=== PATIENT | male | born 1980 | race Caucasian/White ===

== ENCOUNTER 2020-10-14 06:51 | Emergency (ER) | payer OTHER ==
[2020-10-14 07:10] VITALS: BP 117/77; PULSE 82; TEMP 97; BMI 34.2
[2020-10-14 08:31] LABS: BASO % 0.5 % (0-2.0); EOS % 4.9 % (0-4.5); HEMATOCRIT 36.7 % (35.4-49); HEMOGLOBIN 12.1 GM/dL (11.7-16.9); LYMPH % 35.1 % (8-40); MCH 29.4 pg (25.7-33.7); MCHC 32.9 g/dl (32.0-35.9); MEAN CELL VOLUME 89.4 fl (80-96); MEAN PLT VOLUME 9.7 fl (7.5-11.1); MONO % 12.3 % (3.8-10.2); NEUT % 47.2 % (42.8-82.8); PLATELET COUNT 194 K/MM3 (134-434); RBC 4.11 M/mm3 (4.00-5.60); RDW 14.2 % (11.9-15.9); WHITE BLOOD COUNT 7.7 K/mm3 (4.0-10.0)
[2020-10-14 08:41] LABS: CHLORIDE 109 mmol/L (98-107); POTASSIUM 4.5 mmol/L (3.5-5.1); SODIUM 140 mmol/L (136-145)
[2020-10-14 08:44] LABS: ALBUMIN 4.1 g/dl (3.4-5.0); ANION GAP 3 MMOL/L (8-16); BLOOD UREA NITROGEN 7.2 mg/dL (7-18); CO2 28 mmol/L (21-32); GLUCOSE,RANDOM 117 mg/dL (74-106)
[2020-10-14 08:47] LABS: CREATININE 0.8 mg/dL (0.55-1.3); SGOT/AST 22 U/L (15-37); SGPT/ALT 30 U/L (13-61)
[2020-10-14 08:49] LABS: BILIRUBIN,TOTAL 0.3 mg/dL (0.2-1); TOT PROT 6.9 g/dl (6.4-8.2)
[2020-10-14 08:50] LABS: ALK PHOS 50 U/L (45-117)
== END 2020-10-14 08:44 | disposition left against medical advice (07) ==
LOC: JER 06:51
DX: R07.9 Chest pain, unspecified (principal)
CPT/HCPCS: 36415; 71045-TC-FY; 80053; 82550; 82553; 84484; 85025; 93005; 93010; 99285-25

== ENCOUNTER 2021-01-13 14:53 | Emergency (ER) | payer OTHER ==
[2021-01-13 15:03] VITALS: BP 141/83; PULSE 82; TEMP 98; BMI 33.4
[2021-01-13 16:34] LABS: BASO % 0.8 % (0-2.0); EOS % 2.5 % (0-4.5); HEMATOCRIT 38.1 % (35.4-49); HEMOGLOBIN 12.6 GM/dL (11.7-16.9); LYMPH % 23.1 % (8-40); MCHC 33.1 g/dl (32.0-35.9); MEAN CELL VOLUME 90.7 fl (80-96); MEAN PLT VOLUME 9.3 fl (7.5-11.1); MONO % 9.6 % (3.8-10.2); PLATELET COUNT 216 K/MM3 (134-434); RDW 13.5 % (11.9-15.9); WHITE BLOOD COUNT 9.4 K/mm3 (4.0-10.0)
[2021-01-13] MEDS ORDERED: hydrOXYzine PAMOATE 25 MG CAPSULE (FP) PO ONE ×2 (17:26→17:30)
[2021-01-13 17:33] LABS: CHLORIDE 110 mmol/L (98-107); POTASSIUM 4.6 mmol/L (3.5-5.1); SODIUM 139 mmol/L (136-145)
[2021-01-13 17:38] LABS: CALCIUM 9.6 mg/dL (8.5-10.1)
[2021-01-13 17:39] LABS: ALBUMIN 4.6 g/dl (3.4-5.0); ANION GAP 3 MMOL/L (8-16); BLOOD UREA NITROGEN 8.5 mg/dL (7-18); CO2 27 mmol/L (21-32); GLUCOSE,RANDOM 97 mg/dL (74-106)
[2021-01-13 17:42] LABS: CREATININE 0.8 mg/dL (0.55-1.3); SGOT/AST 21 U/L (15-37); SGPT/ALT 24 U/L (13-61)
[2021-01-13 17:43] LABS: BILIRUBIN,TOTAL 0.7 mg/dL (0.2-1); TOT PROT 7.7 g/dl (6.4-8.2)
[2021-01-13 17:44] LABS: ALK PHOS 62 U/L (45-117)
== END 2021-01-13 18:10 | disposition home or self-care (01) ==
LOC: JER 14:53
DX: F41.9 Anxiety disorder, unspecified (principal); R07.9 Chest pain, unspecified
CPT/HCPCS: 36415; 71046-TC-FY; 80053; 82550; 82553; 84484; 85025; 93005; 93010; 99284-25

== ENCOUNTER 2021-05-12 09:02 | Emergency (ER) | payer OTHER ==
[2021-05-12 09:12] VITALS: BP 123/82; TEMP 98.4; BMI 29.6
[2021-05-12] MEDS ORDERED: SODIUM CHLORIDE 1,000 ML IV STA (10:41)
[2021-05-12] MEDS ORDERED: LORazepam 2 MG TABLET PO ONE ×2 (11:25→13:29)
[2021-05-12] MEDS ORDERED: LORazepam 0.5 MG TABLET ONE (11:33)
[2021-05-12 11:45] LABS: BASO % 0.5 % (0-2.0); EOS % 1.4 % (0-4.5); HEMATOCRIT 39.2 % (35.4-49); HEMOGLOBIN 12.7 GM/dL (11.7-16.9); LYMPH % 13.4 % (8-40); MCH 29.3 pg (25.7-33.7); MCHC 32.5 g/dl (32.0-35.9); MEAN CELL VOLUME 90.3 fl (80-96); MEAN PLT VOLUME 8.9 fl (7.5-11.1); MONO % 8.4 % (3.8-10.2); NEUT % 76.3 % (42.8-82.8); PLATELET COUNT 206 10^3/uL (134-434); RBC 4.35 M/mm3 (4.00-5.60); RDW 13.5 % (11.9-15.9); WHITE BLOOD COUNT 8.6 K/mm3 (4.0-10.0)
[2021-05-12 12:06] LABS: BLOOD UREA NITROGEN 10.1 mg/dL (7-18); CALCIUM 8.9 mg/dL (8.5-10.1)
[2021-05-12 12:07] LABS: ALBUMIN 4.4 g/dl (3.4-5.0)
[2021-05-12 12:10] LABS: CREATININE 0.7 mg/dL (0.55-1.3)
[2021-05-12 12:11] LABS: BILIRUBIN,TOTAL 0.3 mg/dL (0.2-1); TOT PROT 7.5 g/dl (6.4-8.2)
[2021-05-12 13:25] VITALS: PULSE 86
[2021-05-12] MEDS ORDERED: LORazepam 1 MG TABLET ONE (13:40)
== END 2021-05-12 13:49 | disposition home or self-care (01) ==
LOC: JER 09:02
PROC: 3E0337Z Introduction of Electrolytic and Water Balance Substance into Peripheral Vein, Percutaneous Approach (ICD-10-PCS; principal; 2021-05-12)
DX: F41.9 Anxiety disorder, unspecified (principal); R07.9 Chest pain, unspecified
CPT/HCPCS: 36415; 80053; 80178; 83930; 85025; 93005; 93010; 99284-25

== ENCOUNTER 2021-05-13 15:45 | Emergency (ER) | payer OTHER ==
[2021-05-13 16:04] VITALS: BP 150/88; PULSE 50; TEMP 98.2; BMI 28.8
== END 2021-05-13 16:00 | disposition left against medical advice (07) ==
LOC: JER 15:45
DX: F41.9 Anxiety disorder, unspecified (principal)
CPT/HCPCS: 99281-25

== ENCOUNTER 2021-12-14 11:33 | Emergency (ER) | payer OTHER ==
[2021-12-14 11:48] VITALS: BP 153/88; PULSE 59; TEMP 98; BMI 30.4
[2021-12-14] MEDS ORDERED: diazePAM CARPU-JECT 10 MG/2 ML DISP.SYRIN IVPUSH ONE (13:00)
[2021-12-14] MEDS ORDERED: SODIUM CHLORIDE 0.9% 500 ML INFUS.BAG IV ONE (13:01)
[2021-12-14] MEDS ORDERED: diazePAM CARPU-JECT 10 MG/2 ML DISP.SYRIN ONE (13:29)
[2021-12-14 13:39] LABS: BASO % 0.4 % (0-2.0); EOS % 1.9 % (0-4.5); HEMATOCRIT 37.8 % (35.4-49); HEMOGLOBIN 12.8 GM/dL (11.7-16.9); LYMPH % 31.2 % (8-40); MCH 30.1 pg (25.7-33.7); MCHC 33.9 g/dl (32.0-35.9); MEAN CELL VOLUME 88.8 fl (80-96); MEAN PLT VOLUME 9.1 fl (7.5-11.1); MONO % 10.2 % (3.8-10.2); NEUT % 56.3 % (42.8-82.8); PLATELET COUNT 278 10^3/uL (134-434); RBC 4.25 M/mm3 (4.00-5.60); RDW 15.1 % (11.9-15.9); WHITE BLOOD COUNT 6.1 K/mm3 (4.0-10.0)
[2021-12-14 13:59] LABS: CALCIUM 9.5 mg/dL (8.5-10.1)
[2021-12-14 14:00] LABS: ALBUMIN 4.5 g/dl (3.4-5.0); BLOOD UREA NITROGEN 12.5 mg/dL (7-18)
[2021-12-14 14:03] LABS: CREATININE 0.7 mg/dL (0.55-1.3)
[2021-12-14 14:05] LABS: BILIRUBIN,TOTAL 0.8 mg/dL (0.2-1); TOT PROT 7.9 g/dl (6.4-8.2)
== END 2021-12-14 15:47 | disposition home or self-care (01) ==
LOC: JER 11:33
PROC: 3E033NZ Introduction of Analgesics, Hypnotics, Sedatives into Peripheral Vein, Percutaneous Approach (ICD-10-PCS; principal; 2021-12-14)
DX: R07.89 Other chest pain (principal); F41.9 Anxiety disorder, unspecified
CPT/HCPCS: 36415; 71046-TC-FY; 80053; 80164; 84443; 84484; 85025; 85379; 93005; 93010; 96374; 99284-25

== ENCOUNTER 2021-12-15 07:43 | Emergency (ER) | payer OTHER ==
[2021-12-15 07:55] VITALS: TEMP 97; BMI 27.6
[2021-12-15] MEDS ORDERED: clonazePAM 2 MG TABLET PO ONE (08:36)
[2021-12-15] MEDS ORDERED: clonazePAM 0.5 MG TABLET ONE (08:43)
[2021-12-15] MEDS ORDERED: SODIUM CHLORIDE 0.9% 500 ML INFUS.BAG IV ONE (10:18)
[2021-12-15 10:36] LABS: BASO % 0.3 % (0-2.0); EOS % 0.6 % (0-4.5); HEMATOCRIT 38.2 % (35.4-49); HEMOGLOBIN 12.4 GM/dL (11.7-16.9); LYMPH % 20.8 % (8-40); MCH 29.1 pg (25.7-33.7); MCHC 32.5 g/dl (32.0-35.9); MEAN CELL VOLUME 89.4 fl (80-96); MEAN PLT VOLUME 9.2 fl (7.5-11.1); MONO % 6.4 % (3.8-10.2); NEUT % 71.9 % (42.8-82.8); PLATELET COUNT 209 10^3/uL (134-434); RBC 4.28 M/mm3 (4.00-5.60); RDW 14.7 % (11.9-15.9); WHITE BLOOD COUNT 6.2 K/mm3 (4.0-10.0)
[2021-12-15 10:58] LABS: CHLORIDE 108 mmol/L (98-107); SODIUM 141 mmol/L (136-145)
[2021-12-15 11:00] LABS: CALCIUM 9.2 mg/dL (8.5-10.1)
[2021-12-15 11:01] LABS: ALBUMIN 4.2 g/dl (3.4-5.0); ANION GAP 3 MMOL/L (8-16); BLOOD UREA NITROGEN 9.8 mg/dL (7-18); CO2 29 mmol/L (21-32); GLUCOSE,RANDOM 92 mg/dL (74-106); LIPASE 63 U/L (73-393)
[2021-12-15 11:03] LABS: SGPT/ALT 21 U/L (13-61)
[2021-12-15 11:04] LABS: CREATININE 0.6 mg/dL (0.55-1.3); SGOT/AST 10 U/L (15-37)
[2021-12-15 11:05] LABS: BILIRUBIN,TOTAL 0.7 mg/dL (0.2-1); TOT PROT 7.3 g/dl (6.4-8.2)
[2021-12-15 11:07] LABS: ALK PHOS 51 U/L (45-117)
[2021-12-15 11:22] VITALS: BP 132/91; PULSE 65
== END 2021-12-15 11:27 | disposition home or self-care (01) ==
LOC: JER 07:43
DX: R07.9 Chest pain, unspecified (principal); F41.9 Anxiety disorder, unspecified
CPT/HCPCS: 36415; 71046-TC-FY; 80053; 83690; 84443; 84484; 85025; 93005; 93010; 99285-25